=== PATIENT | male | born 1965 | race Two or more races ===

== ENCOUNTER 2017-01-21 06:56 | Emergency (ER) | payer MEDICAID ==
[~2017-01-21] VITALS: Ht 170.2 cm; Wt 90.7 kg
[2017-01-21 08:07] VITALS: BP 138/93
== END 2017-01-21 08:43 | disposition home or self-care (01) ==
LOC: ER 06:56
DX: N48.1 Balanitis (principal)

== ENCOUNTER 2018-07-17 18:41 | Emergency (ER) | payer MEDICAID ==
[~2018-07-17] VITALS: Ht 170.2 cm; Wt 88.5 kg
[2018-07-17 20:26] VITALS: BP 152/97
== END 2018-07-17 20:41 | disposition home or self-care (01) ==
LOC: ER 18:44
DX: S09.8XXA Other specified injuries of head, initial encounter (principal); M62.838 Other muscle spasm; M54.2 Cervicalgia; X58.XXXA Exposure to other specified factors, initial encounter; Y93.89 Activity, other specified; Y92.89 Other specified places as the place of occurrence of the external cause; Y99.8 Other external cause status
CPT/HCPCS: 70450; 72125

== ENCOUNTER 2018-09-26 11:41 | Emergency (ER) | payer MEDICAID ==
[~2018-09-26] VITALS: Ht 170.2 cm; Wt 90.7 kg
[2018-09-26 11:48] VITALS: BP 151/86
== END 2018-09-26 13:46 | disposition home or self-care (01) ==
LOC: ER 11:43
DX: M54.6 Pain in thoracic spine (principal); G89.29 Other chronic pain
CPT/HCPCS: 93005

== ENCOUNTER 2020-06-09 10:35 | Emergency (ER) | payer MEDICAID ==
[~2020-06-09] VITALS: Ht 170.2 cm; Wt 88.5 kg
[2020-06-09 12:36] VITALS: BP 158/96
== END 2020-06-09 12:45 | disposition home or self-care (01) ==
LOC: ER 10:35
DX: N48.1 Balanitis (principal); M54.5 Low back pain; G89.29 Other chronic pain

== ENCOUNTER 2020-07-04 10:26 | Emergency (ER) | payer MEDICAID ==
[~2020-07-04] VITALS: Ht 170.2 cm; Wt 88.5 kg
[2020-07-04 11:58] VITALS: BP 143/92
== END 2020-07-04 13:22 | disposition home or self-care (01) ==
LOC: ER 10:26
DX: B37.42 Candidal balanitis (principal)

== ENCOUNTER 2021-03-01 23:27 | Emergency (ER) | payer MEDICAID ==
[~2021-03-01] VITALS: Ht 172.7 cm; Wt 86.2 kg
[2021-03-01 23:27] VITALS: BP 127/79
== END 2021-03-02 00:53 | disposition left against medical advice (07) ==
LOC: ER 23:30
DX: M54.5 Low back pain (principal); R07.81 Pleurodynia; Z53.21 Procedure and treatment not carried out due to patient leaving prior to being seen by health care provider; V89.2XXA Person injured in unspecified motor-vehicle accident, traffic, initial encounter; Y93.I9 Activity, other involving external motion; Y92.488 Other paved roadways as the place of occurrence of the external cause; Y99.8 Other external cause status

== ENCOUNTER 2021-03-28 11:20 | Emergency (ER) | payer MEDICAID, OTHER ==
[~2021-03-28] VITALS: Ht 170.2 cm; Wt 2.5 kg
[2021-03-28 12:14] VITALS: BP 122/83
== END 2021-03-28 13:31 | disposition home or self-care (01) ==
LOC: ER 11:20
DX: S90.32XA Contusion of left foot, initial encounter (principal); M54.5 Low back pain; W22.8XXA Striking against or struck by other objects, initial encounter; Y93.89 Activity, other specified; Y92.69 Other specified industrial and construction area as the place of occurrence of the external cause; Y99.8 Other external cause status
CPT/HCPCS: 72100; 73630

== ENCOUNTER 2022-10-01 08:45 | Emergency (ER) | payer OTHER ==
[~2022-10-01] VITALS: Ht 170.2 cm; Wt 85.3 kg
[2022-10-01] MEDS ORDERED: HYDROcodone-ACET 5/325MG TAB PO ONE (11:00)
[2022-10-01] MEDS ORDERED: KETOROLAC TROMETH 60MG/2ML VIAL IM ONE (11:00)
[2022-10-01 12:36] VITALS: BP 128/74
[2022-10-01] MEDS ORDERED: IBUP800T26 PO (14:02)
[2022-10-01] MEDS ORDERED: HYDR-4902 PO (14:02)
== END 2022-10-01 14:08 | disposition home or self-care (01) ==
LOC: ER 08:45
DX: S56.911A Strain of unspecified muscles, fascia and tendons at forearm level, right arm, initial encounter (principal); M54.12 Radiculopathy, cervical region; W20.8XXA Other cause of strike by thrown, projected or falling object, initial encounter; Y93.89 Activity, other specified; Y92.89 Other specified places as the place of occurrence of the external cause; Y99.8 Other external cause status
CPT/HCPCS: 72040; 73080; 93005; 96372; 99284; J1885

== ENCOUNTER 2024-12-28 09:46 | Emergency (ER) | payer OTHER ==
[~2024-12-28] VITALS: Ht 167.6 cm; Wt 81.2 kg
[~2024-12-28 09:46] MED LIST: HYDR-4902 PO; IBUP-1455 PO
[2024-12-28 09:54] VITALS: BP 163/97; PULSE 105; RESP 17; TEMP 98.6; O2SAT 97
--- NOTE | 2024-12-28 11:09 | DVH ---
CLINICAL INFORMATION: Swelling. Rule out fracture. Fall injury. TECHNIQUE: 3 views of the right hand were obtained. COMPARISON: None FINDINGS: Acute avulsion fracture of the volar aspect of the base of the middle phalanx of the 3rd di git with mildly displaced osseous fragment measuring up to 4.4 mm. Moderate arthritic changes of the 1st carpometacarpal joint and in multiple interphalangeal joints. Moderate soft tissue swelling in th e 3rd digit and, to a lesser extent the 2nd and 4th digits. Focal soft tissue swelling also seen karen g the dorsal aspect of the hand near the level of the metacarpal heads on the lateral view IMPRESSION: 1. Acute avulsion fracture of the volar aspect of the base of the middle phalanx of the 3rd digit. 2. Additional findings as described above.
--- NOTE | 2024-12-28 11:30 | ED.PDOC ---
Jerrod. trauma (HPI) HPI Comments 59 y.o male presents to the ED for a chief complaint of right hand pain with swelling s/p fall yesterday. Patient reports he was getting off the truck, lost his balance and fell onto his right hand. Patient presents with superficial abrasions down his whole right leg and mentions limited ROM to his right hand with 10/10 pain with movement. Patient denies any head injuries. Patient does admit to drinking too much alcohol yesterday. Chief Complaint: Upper Extremity Time Seen by MD: 11:19 Primary Care Provider: none Reviewed notes: Nurses Notes, Medications, Allergies Allergies: Coded Allergies: NO KNOWN ALLERGIES (Unverified , 06/09/20) Home Meds Active Scripts Hydrocodone-Acetaminophen (Hydrocodone Bitartrate/AC 5-325 mg) 1 Tab Tab, 1 TAB PO Q6HP PRN, #20 TAB Prov:CEDRIC GALAN PAC 10/01/22 Ibuprofen Micronized (Ibuprofen) 800 Mg Tab, 800 MG PO Q8HP PRN, #30 TAB Prov:CEDRIC GALAN PAC 10/01/22 Information Source: Patient Mode of Arrival: Ambulatory Severity: Moderate Timing: Days (1) Duration: Since onset Location: (R) Hand, (R) Wrist Location of laceration: None Mechanism: Fall Associated signs and symtoms: Other Past Medical History PAST MEDICAL HISTORY: Denies Surgical History: Denies all surgeries Family History Family History: Reviewed,noncontributory to illness Social History Smoker: Non-Smoker Alcohol: Denies ETOH Use Drugs: Denies Drug Use Lives In: Home Constitutional: denies: chills, diaphoresis, fatigue, fever, malaise, sweats, weakness, others EENTM: denies: blurred vision, double vision, ear bleeding, ear discharge, ear drainage, ear pain, ear ringing, eye pain, eye redness, hearing loss, mouth pain, mouth swelling, nasal discharge, nose bleeding, nose congestion, nose pain, photophobia, tearing, throat pain, throat swelling, voice changes, others Respiratory: denies: cough, hemoptysis, orthopnea, SOB at rest, shortness of breath, SOB with excertion, stridor, wheezing, others Cardiovascular: denies: chest pain, dizzy spells, diaphoresis, Dyspnea on exertion, edema, irregular heart beat, left arm pain, lightheadedness, palpitations, PND, syncope, others Gastrointestinal: denies: abdomen distended, abdominal pain, blood streaked bowels, constipated, diarrhea, dysphagia, difficulty swallowing, hematemesis, melena, nausea, poor appetite, poor fluid intake, rectal bleeding, rectal pain, vomiting, others Genitourinary: denies: burning, dysuria, flank pain, frequency, hematuria, incontinence, penile discharge, penile sore, pain, testicle pain, testicle swelling, urgency, others Neurological: denies: dizziness, fainting, headache, left sided numbness, left sided weakness, numbness, paresthesia, pre-existing deficit, right sided numbne ss, right sided weakness, seizure, speech problems, tingling, tremors, weakness, others Musculoskeletal: reports: others (right hand pain and swelling ); denies: back pain, gout, joint pain, joint swelling, muscle pain, muscle stiffness, neck pain Integumetry: reports: others (abrasions to the right leg ); denies: bruises, change in color, change in hair/nails, dryness, laceration, lesions, lumps, rash, wounds Allergic/Immunocompromised: denies: Difficulty Healing, Frequent Infections, Hives, Itching, others Hematologic/Lymphatic: denies: anemia, blood clots, easy bleeding, easy bruising, swollen glands, others Endocrine: denies: excessive hunger, excessive sweating, excessive thirst, excessive urination, flushing, intolerance to cold, intolerance to heat, unexplained weight gain, unexplained weight loss, others Psychiatric: denies: anxiety, bipolar disorder, depression, hopeless, panic disorder, schizophrenia, sleepless, suicidal, others All Other Systems: Reviewed and Negative Physical Exam General Appearance: Moderate Distress HEENT: Normal ENT Inspection, Pharynx Normal, TMs Normal Neck: Full Range of Motion, Non-Tender, Normal, Normal Inspection Respiratory: Chest Non-Tender, Lungs Clear, No Accessory Muscle Use, No Respiratory Distress, Normal Breath Sounds Cardiovascular: No Edema, No JVD, No Murmur, No Gallop, Normal Peripheral Pulses, Regular Rate/Rhythm Breast Exam: Deferred Gastrointestinal: No Organomegaly, Non Tender, No Pulsatile Mass, Normal Bowel Sounds, Soft Genitalia: Deferred Pelvic: Deferred Rectal: Deferred Extremities: Decreased range of motion (Right hand), No calf tenderness, Normal capillary refill, Non-tender, No pedal edema Musculoskeletal : Apperance: Normal Neurologic: Alert, service station manager II-XII nml as Tested, No Motor Deficits, Normal Affect, Normal Mood, No Sensory Deficits Cerebellar Function: Normal Reflexes: Normal Skin: Dry, Normal Color, Warm Peripheral Pulses: 3+ Radial (R), 3+ Radial (L) Lymphatic: No Adenopathy Was a procedure done? Was a procedure done?: No Differential Diagnosis Multiple Trauma: Fractures, Abrasions, Contusion X-Ray, Labs, Meds, VS Vital Signs Date Time Temp Pulse Resp B/P (MAP) Pulse Ox O2 Delivery O2 Flow Rate FiO2 12/28/24 09:54 98.6 105 17 163/97 (119) 97 98.6 12/28/24 09:50 98.8 105 17 163/97 (119) 97 98.8 12/28/24 09:50 105 17 97 Room Air Patient alert. Swelling of the right hand. Status post fall yesterday. Vitals stable. Answering questions. He was drinking yesterday prior to the fall. Counseled patient on effects of alcohol for 15 minutes. He was given [place]. Was given prescription of Motrin. Placed in a splint. X-ray reviewed does show fracture of the 3rd digit. Reviewed his history. Explained to the patient. Was told to follow up with his primary care physician. Was told to come back if there is any problem. Time of 1ST Reevaluation: 11:26 Reevaluation 1ST: Unchanged Patient Education/Counseling: Diagnosis, Treatment, Prognosis Family Education/Counseling: Diagnosis, Treatment, Prognosis Departure 1 Departure Time of Disposition: 11:33 Impression: Primary Impression: Finger fracture Qualified Codes: S62.652A - Nondisplaced fracture of middle phalanx of right middle finger, initial encounter for closed fracture Disposition: 01 HOME / SELF CARE / HOMELESS Condition: Good e-Prescriptions Ibuprofen Micronized (MOTRIN TABLET) 600 Mg Tb 600 MG PO TID PRN for 5 Days, #15 TAB *Black box warning-NSAIDS can increase risk of VT & hypertension, GI irritation, ulceration, bleed, perferation. Do not use post cardiac surgery. Use short duration/lowest effective dose. Prov: JOSIE CORTEZ MD 12/28/24 Discharged With: Self Critical Care Note Critical Care Time?: No Stability Stability form required: No I personally scribed for JOSIE CORTEZ MD ([email or web address]) on 12/28/24 at 11:30. Electronically submitted by Jessica Quezada ([facility]). JOSIE CORTEZ MD Dec 28, 2024 11:30
[2024-12-28] MEDS ORDERED: IBU600T PO (11:34)
[2024-12-28] MEDS: HYDROcodone-ACET 10/325MG TAB PO ONE (12:07)
== END 2024-12-28 12:08 | disposition home or self-care (01) ==
LOC: ER 09:46
DX: S62.622A Displaced fracture of middle phalanx of right middle finger, initial encounter for closed fracture (principal); W01.0XXA Fall on same level from slipping, tripping and stumbling without subsequent striking against object, initial encounter; Y93.89 Activity, other specified; Y92.89 Other specified places as the place of occurrence of the external cause; Y99.8 Other external cause status
CPT/HCPCS: 29125; 73130